=== PATIENT | female | born 1995 | race Caucasian/White ===

== ENCOUNTER 2016-10-11 20:43 | Emergency (ER) | payer BC ==
[~2016-10-11] VITALS: Ht 167.6 cm; Wt 86.4 kg
[~2016-10-11 20:43] MED LIST: ACHYD1T PO; AMOX-358 PO; DIAZ5TAB3 PO; ESCI20TA39 PO; NFLYR75C PO; ONDA4TAB41 PO; ONDA4TAB8 PO; TIZAN4T PO; TRM50T PO
[2016-10-11] MEDS ORDERED: KETOROLAC 30 MG/ML (TORADOL) 1 ML VIAL IV ONE (21:35)
[2016-10-11] MEDS ORDERED: SODIUM CHLORIDE FLUSH 3 ML SYR IV PRN (21:35)
[2016-10-11] MEDS ORDERED: ONDANSETRON 2 MG/ML (Z0FRAN) 2 ML VIAL IV ONE ×2 (21:35→23:45)
[2016-10-11] MEDS ORDERED: SODIUM CHLORIDE FLUSH 10 ML SYR IV PRN (21:35)
[2016-10-11 22:31] LABS: MEAN CORPUSCULAR HEMOGLOBIN 29.8 PG (26.0-34.0); MEAN CORPUSCULAR VOLUME 84 FL (80-100); MEAN PLATELET VOLUME 9.7 FL (6.0-9.5); PLATELET COUNT 307 10^3uL (150-450); WHITE BLOOD COUNT 5.35 10^3uL (4.0-11.0)
[2016-10-11 22:37] LABS: ALBUMIN 4.7 g/dL (3.4-5.0); ANION GAP 16.3 MEQ/L (3-15); CALCULATED IONIZED CALCIUM 4.1 mg/dL (3.8-4.6); TOTAL PROTEIN 8.2 g/dL (6.4-8.5)
[2016-10-11 22:42] LABS: MEAN CORPUSCULAR HGB CONC 35.5 g/dL (31.0-37.0)
[2016-10-11] MEDS ORDERED: HYDROmorphone 1 MG/ML (DILAUDID) SYRINGE IV ONE (22:45)
[2016-10-11 23:00] LABS: BILIRUBIN,URINE Negative (Negative); CLARITY,URINE Clear; COLOR,URINE Yellow; GLUCOSE, URINE (UA) Negative (Negative); LEUKOCYTE ESTERASE ,URINE Negative (Negative); PH,URINE 6.5 (5.0 - 8.0); UROBILINOGEN,URINE 0.2 mg/dL (0.2-1.0)
[2016-10-11 23:10] LABS: BAND NEUTROPHILS % 0 % (0-6); EOSINOPHILS % 1 % (0-4); MONOCYTES # 0.3 #; MONOCYTES % 6 % (3-11); RBC MORPH NORMAL (NORMAL); SEGMENTED NEUTROPHILS % 36 % (51-67); TOTAL CELLS COUNTED 100
[2016-10-11] MEDS: HYDROmorphone 1 MG/ML (DILAUDID) SYRINGE IV PRN (23:58)
[2016-10-12] MEDS: HYDROmorphone 1 MG/ML (DILAUDID) SYRINGE IV PRN (01:08)
[2016-10-12] MEDS ORDERED: diphenhydrAMINE 50 MG/ML INJ (BENADRYL) IV ONE (01:45)
[2016-10-12] MEDS ORDERED: ED- HYDROcodone/ACETAMINOPHEN 5MG/325MG (NORCO) 6 TABLETS/BTL PO ONE (02:10)
[2016-10-12 02:53] VITALS: BP 117/75
--- NOTE | 2016-10-12 08:37 | Diagnostic Imaging Report ---
INDICATION: Left flank pain. FINDINGS: The bowel gas pattern is unremarkable. There is no abnormal fecal loading. No suspicious calcifications. No mass effect is identified. IMPRESSION: Unremarkable abdominal radiographs. Dictated by: Dictated on workstation # [id number]
== END 2016-10-12 02:40 | disposition home or self-care (01) ==
LOC: ED 20:44
DX: M54.89 Other dorsalgia (principal); R10.32 Left lower quadrant pain
CPT/HCPCS: 36415; 74000; 80053; 81003; 81025; 85025; 96361; 96374; 96375; 96376; 99285; J1170; J1200; J1885; J2405; J7030; 99283